=== PATIENT | male | born 1965 | race Caucasian/White ===

== ENCOUNTER 2018-04-29 16:21 | Emergency (ER) | payer OTHER ==
[~2018-04-29 16:21] MED LIST: CA CHLORIDE 10% 10 ML SYRINGE; EPINEPHrine 0.1 MG/ML SYG; NA BICARBONATE 8.4% 50 ML SYG
[2018-04-29 16:52] LABS: ABNORMAL IP MESSAGE 1; HEMATOCRIT 31.5 % (42.0-52.0); HEMOGLOBIN 9.9 g/dl (14.0-18.0); MEAN CORPUSCULAR HEMOGLOBIN 29.5 pg (29.0-33.0); MEAN CORPUSCULAR HGB CONC 31.4 g/dl (32.0-37.0); MEAN CORPUSCULAR VOLUME 93.8 fl (82.0-101.0); MEAN PLATELET VOLUME 9.2 fl (7.4-10.4); PLATELET COUNT 378 10^3/UL (140-415); POSITIVE DIFF @See below; RED BLOOD COUNT 3.36 10^6/ul (4.70-6.10); RED CELL DISTRIBUTION WIDTH 13.7 % (11.5-14.5)
[2018-04-29 17:12] LABS: ALANINE AMINOTRANSFERASE 21 IU/L (13-69); ALBUMIN 3.1 g/dl (3.3-4.9); ALBUMIN/GLOBULIN RATIO 1.06; ALKALINE PHOSPHATASE 125 IU/L (42-121); ANION GAP 31 (8-16); ASPARTATE AMINO TRANSFERASE 21 IU/L (15-46); BILIRUBIN,INDIRECT 0.7 mg/dl (0-1.1); BILIRUBIN,TOTAL 0.7 mg/dl (0.2-1.3); BLOOD UREA NITROGEN 28 mg/dl (7-20); CALCIUM 10.7 mg/dl (8.4-10.2); CARBON DIOXIDE 19 mmol/L (21-31); CHLORIDE 87 mmol/L (97-110); GLUCOSE 122 mg/dl (70-220); POTASSIUM 5.2 mmol/L (3.5-5.1); SODIUM 132 mmol/L (135-144)
[2018-04-29 18:36] LABS: ADD MAN DIFF? YES
[2018-04-29 18:38] LABS: PATH REVIEW YES
== END 2018-04-29 18:45 | disposition expired ==
LOC: E/R 18:45
DX: I46.9 Cardiac arrest, cause unspecified (principal); R40.2432 Glasgow coma scale score 3-8, at arrival to emergency department
CPT/HCPCS: 80053; 85025; 92950; 99283